=== PATIENT | male | born 1970 | race Caucasian/White ===

== ENCOUNTER 2017-07-08 17:34 | Emergency (ER) | payer SELFPAY ==
[2017-07-08 17:35] VITALS: BP 138/87; PULSE 84; RESP 14; TEMP 98; O2SAT 100
[2017-07-08 18:26] LABS: BILIRUBIN, URINE NEG (NEG); BLOOD, URINE TRACE (NEG); GLUCOSE,URINE NEG (NEG); KETONE, URINE NEG (NEG); MUCUS URINE MANY /lpf (OCC); NITRITE,URINE NEG (NEG); PH, URINE 6.5 (5.0-8.5); URINE COLOR YELLOW (YELLW/STRAW); URINE LEUKOCYTE ESTERASE NEG (NEG)
--- NOTE | 2017-07-08 20:55 | PD ---
HPI Chief Complaint: Complaint Time Seen by Provider: 20:43 Travel History International Travel<30 days: No Contact w/Intl Traveler<30days: No Traveled to known affect area: No History of Present Illness HPI 47yo M with no PMH presents to the ED requesting treatment for STI. Said his partner told him she has gonorrhea and to get treated. He said he does notice some penile discharge after she mentioned it. However, he is refusing exam because he is "wounded". Denies any fever, chest pain, sob, n/v, abdominal pain ,testicular pain, focal weakness or numbness. PFSH Past Medical History Medical History: Denies Significant Hx Diminished Hearing: No Tetanus Vaccination: Unknown Influenza Vaccination: No Past Surgical History Surgical History: No Previous Surgery Social History Alcohol Use: No Tobacco Use: Yes Substance Use: No Allergies-Medications (Allergen,Severity, Reaction): Coded Allergies: No Known Allergies (Unverified , 07/08/17) Review of Systems Except as stated in HPI: all other systems reviewed are Neg Physical Exam Narrative GENERAL: 47yo M not in distress. SKIN: Focused skin assessment warm/dry. HEAD: Atraumatic. Normocephalic. CARDIOVASCULAR: Regular rate and rhythm. No murmur appreciated. RESPIRATORY: No accessory muscle use. Clear to auscultation. Breath sounds equal bilaterally. GASTROINTESTINAL: Abdomen soft, non-tender, nondistended. : Refused. MUSCULOSKELETAL: No obvious deformities. No clubbing. No cyanosis. No edema. NEUROLOGICAL: Awake and alert. No obvious cranial nerve deficits. Motor grossly within normal limits. Normal speech. PSYCHIATRIC: Appropriate mood and affect; insight and judgment normal. Data Data Last Documented VS Vital Signs Date Time Temp Pulse Resp B/P (MAP) Pulse Ox O2 Delivery O2 Flow Rate FiO2 07/08/17 17:35 98.0 84 14 138/87 (104) 100 Orders Orders Urinalysis - C+S If Indicated (07/08/17 18:00) Gc And Chlamydia Pcr (07/08/17 18:00) Azithromycin Powd Pack (Zithromax Powd P (07/08/17 21:00) Ceftriaxone Inj (Rocephin Inj) (07/08/17 21:00) Lidocaine 1% Inj (50 Ml) (Xylocaine 1% I (07/08/17 21:00) Labs Laboratory Tests Test 07/08/17 18:05 Urine Color YELLOW Urine Turbidity CLEAR Urine pH 6.5 Urine Specific [place] 1.026 Urine Protein 30 mg/dL Urine Glucose (UA) NEG mg/dL Urine Ketones NEG mg/dL Urine Occult Blood TRACE Urine Nitrite NEG Urine Bilirubin NEG Urine Urobilinogen LESS THAN 2.0 MG/DL Urine Leukocyte Esterase NEG Urine RBC 5 /hpf Urine WBC 2 /hpf Urine Mucus MANY /lpf Microscopic Urinalysis Comment CULT NOT INDICATED MDM Medical Decision Making Medical Screen Exam Complete: Yes Emergency Medical Condition: Yes Differential Diagnosis Treatment for gonorrhea Narrative Course 47yo M here for treatment for gonorrhea after he was told by his partner that she has gonorrhea. Pt refused exam and said he is wounded. Denies any systemic symptoms. Ceftriaxone with lidocaine IM and azithromycin given. Return precautions given. Diagnosis Primary Impression: STI (sexually transmitted infection) Patient Instructions: General Instructions Departure Forms: Tests/Procedures Additional Instructions: Please return to the ED if symptoms worsen. Med/Other Pt SpecificInfo: No Change to Meds Disposition: 01 DISCHARGE HOME Condition: Stable Sushma Chang DO Jul 08, 2017 20:55
[2017-07-08] MEDS ORDERED: LIDOCAINE HCL 1% 50 ML VIAL XX ONE (21:00)
[2017-07-08] MEDS ORDERED: AZITHROMYCIN PWD FOR SUSP 1 GM PACKET PO ONE (21:00)
[2017-07-08] MEDS ORDERED: cefTRIAXone 250 MG VIAL IM ONE (21:00)
== END 2017-07-08 21:13 | disposition home or self-care (01) ==
LOC: NEPC 17:34
DX: A64 Unspecified sexually transmitted disease (principal); Z72.0 Tobacco use
CPT/HCPCS: 81001; 87491; 87591; 96374; 99284; J0696